=== PATIENT | male | born 2000 | race Hispanic/Latino ===

== ENCOUNTER 2023-10-02 19:29 | Emergency (ER) | payer BC ==
[2023-10-02] MEDS ORDERED: Lidocaine 2% PF 5 ML VIAL ONE (19:45)
== END 2023-10-02 21:21 | disposition home or self-care (01) ==
LOC: ERS 19:29
DX: S60.351A Superficial foreign body of right thumb, initial encounter (principal); F17.290 Nicotine dependence, other tobacco product, uncomplicated; W26.8XXA Contact with other sharp object(s), not elsewhere classified, initial encounter
CPT/HCPCS: 10120; J2001